=== PATIENT | female | born 1945 | race Caucasian/White ===

== ENCOUNTER 2020-01-07 10:48 | Outpatient (CLI) | payer MEDICARE, BC, SELFPAY ==
[2020-01-07 11:05] VITALS: BP 101/60; PULSE 80; RESP 16; TEMP 36.6; O2SAT 97
[2020-01-07] MEDS: denosumab 60 mg SDV SUBCUT (11:27)
[2020-01-07 11:38] VITALS: BP 107/62; PULSE 84; RESP 16; TEMP 36.8; O2SAT 97
== END 2020-01-07 10:49 | disposition home or self-care (01) ==
LOC: RHEOACUTE 10:49
PROVIDERS: Family Provider Family Medicine; PCP Family Medicine; Visit Provider Internal Medicine Rheumatology
DX: M81.0 Age-related osteoporosis without current pathological fracture (principal)
CPT/HCPCS: 96372; J0897

== ENCOUNTER → 2020-03-25 08:45 | Outpatient (BNVA) | payer MEDICARE, BC, SELFPAY | PROVIDERS: Family Provider Family Medicine; PCP Family Medicine; Visit Provider Dermatology | DX: D48.9 Neoplasm of uncertain behavior, unspecified (principal); L57.0 Actinic keratosis; L70.8 Other acne; D18.01 Hemangioma of skin and subcutaneous tissue; L82.1 Other seborrheic keratosis | CPT/HCPCS: 10040; 11102; 11306; 17000; 17003; 88305; 99203 ==

== ENCOUNTER → 2020-04-01 10:41 | Outpatient (BNVA) | payer MEDICARE, BC, SELFPAY | PROVIDERS: Family Provider Family Medicine; PCP Family Medicine; Visit Provider Dermatology | DX: D48.9 Neoplasm of uncertain behavior, unspecified (principal) | CPT/HCPCS: 88305 ==

== ENCOUNTER 2020-04-05 07:22 | Outpatient (CLI) | payer MEDICARE, BC, SELFPAY ==
--- NOTE | 2020-04-05 07:28 | MM_ITS ---
WS: [id number] BILATERAL SCREENING DIGITAL MAMMOGRAM WITH CAD HISTORY: SCREENING COMPARISON: 03/17/2019 and 03/15/2018 Bilateral CC and MLO views submitted. Computer aided detection analyzed. Breast composition: There are scattered areas of fibroglandular density. No suspicious masses, microc alcifications or architectural distortion. Benign calcifications in the LEFT breast are stable. MM/[id number] IMPRESSION: BI-RADS: 2-Benign FOLLOW UP: 1 Year Follow-up
== END 2020-04-05 07:23 | disposition home or self-care (01) ==
LOC: RADSHAW 07:27
PROVIDERS: PCP Family Medicine; Visit Provider Family Medicine
DX: Z12.31 Encounter for screening mammogram for malignant neoplasm of breast (principal)
CPT/HCPCS: 77067

== ENCOUNTER 2021-03-10 09:42 | Outpatient (CLI) | payer MEDICARE, BC, SELFPAY ==
--- NOTE | 2021-03-10 09:50 | XR_ITS ---
WS: [id number] DEXA (DUAL ENERGY X-RAY ABSORPTIOMETRY) Bone mineral density was performed using a Gecko TV machine. HISTORY: POST MENOPAUSAL COMPARISON: 02/18/2019 Lumbar spine BMD (L1-L4): 1.227 g/cm2 T score: 0.4 Z score: 2.5 Total hip BMD: Left: 0.770 g/cm2. T score: -1.9 Z score: 0.2 Right: 0.691 g/cm2. T score: -2.5 Z score: -0.4 10 year probability of a major osteoporotic fracture is 45%. Compared to the prior study from 02/18/2019. Lumbar spine bone mineral density has increased by 1.0%. Bilateral hips bone mineral density has decrease by 5.3%. XR/XR DEXA axial skeleton* [id number] IMPRESSION: OSTEOPOROSIS based upon the WHO classification for females. Significant decrease in bone mineral density within the hips since the prior .
== END 2021-03-10 09:43 | disposition home or self-care (01) ==
PROVIDERS: PCP Family Medicine; Visit Provider Family Medicine
DX: Z78.0 Asymptomatic menopausal state (principal); M81.0 Age-related osteoporosis without current pathological fracture
CPT/HCPCS: 77080

== ENCOUNTER 2021-04-04 08:19 | Outpatient (CLI) | payer MEDICARE, BC, SELFPAY ==
[2021-04-04 08:27] VITALS: BP 112/76; PULSE 96; RESP 18; TEMP 36.1; O2SAT 98
[2021-04-04] MEDS: denosumab 60 mg SDV SUBCUT (08:35)
== END 2021-04-04 08:20 | disposition home or self-care (01) ==
LOC: ONCMED 08:21
PROVIDERS: PCP Family Medicine; Referring Provider Family Medicine; Visit Provider Family Medicine
DX: M81.0 Age-related osteoporosis without current pathological fracture (principal); Z79.899 Other long term (current) drug therapy
CPT/HCPCS: 96372; J0897

== ENCOUNTER 2021-04-22 07:44 | Outpatient (CLI) | payer MEDICARE, BC, SELFPAY ==
--- NOTE | 2021-04-22 07:50 | MM_ITS ---
WS: [id number] Bilateral screening digital mammogram, 04/22/2021 Clinical Data: SCREENING Comparison: 04/05/2020, 03/17/2019, 03/15/2018, 02/26/2017, 02/25/2016, 02/19/2015, 10/27/2013. Findings: The breast parenchymal pattern shows fibroglandular tissue No spiculated masses or clustered calcific ations are seen. There are no secondary signs of carcinoma. MM/[place] [id number] Impression: 1. Negative bilateral mammogram unchanged. 2. Recommend annual screening mammograms. BIRADS: 1-Negative FOLLOW UP: 1 Year Follow-up The CAD sample checker was used.
== END 2021-04-22 07:45 | disposition home or self-care (01) ==
LOC: RADSHAW 07:48
PROVIDERS: PCP Family Medicine; Visit Provider Family Medicine
DX: Z12.31 Encounter for screening mammogram for malignant neoplasm of breast (principal)
CPT/HCPCS: 77067

== ENCOUNTER 2021-06-13 09:02 | Outpatient (CLI) | payer MEDICARE, BC, SELFPAY ==
--- NOTE | 2021-06-13 09:17 | CT_ITS ---
WS: [id number] CT scan of the abdomen and pelvis with IV contrast. Additional two-dimensional coronal and sagittal r econstruction was performed. 06/13/2021 Clinical Data: ABDOMINAL PAIN AND OBSTIPATION Comparison: None. DLP: 900.[address] scans at [facility] use at least one of these dose optimization techniques: automated e xposure control; mA and/or kV adjustment per patient size (includes targeted exams where dose is matc hed to clinical indication); or iterative reconstruction. Findings: The lower lungs show no nodules, masses or effusions. There are multiple low-density lesions througho ut the liver most consistent with metastatic disease. The portal vein shows normal flow. There is no perihepatic fluid. No dilated intrahepatic ducts are seen. The pancreas shows multiple low density lesions with some calcifications in the body and tail. The he ad of the pancreas is normal. These changes could represent IMPN and/or chronic pancreatitis. The gallbladder, spleen and adrenal glands are normal. The kidneys show equal bilateral contrast excretion with bilateral cysts, the largest on the right me asuring 5.1 cm. There is an extrarenal pelvis on the left. No hydronephrosis, renal masses or calcifi cations are noted. The abdominal aorta is normal in size with minimal calcification in the wall.. No appendicitis or diverticulitis is seen. The stomach, small bowel and colon show no masses or dilat ation. There is a large amount of fecal material throughout the colon. No abscess, adenopathy, ascite s, mass, obstruction or free air is seen. The bladder is unremarkable. No inguinal hernia is seen. 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 CT/CT abdomen pelvis w con* [id number] Impression: 1. Low-density lesions throughout the liver most consistent with metastatic dis ease. 2. Multiple low-density lesions with calcifications in the body and tail of jade creas which could indicate IMPN and/or chronic pancreatitis.
[2021-06-13 09:50] LABS: Blood Urea Nitrogen 15 mg/dL (8-23)
[2021-06-13] MEDS: iohexol 300 mg/mL 100 mL Btl IV (09:59)
== END 2021-06-13 09:03 | disposition home or self-care (01) ==
PROVIDERS: PCP Family Medicine; Visit Provider Family Medicine
DX: R10.9 Unspecified abdominal pain (principal); K59.00 Constipation, unspecified
CPT/HCPCS: 74177; 82565; 84520; Q9967

== ENCOUNTER 2021-06-13 17:19 | Emergency (ER) | payer MEDICARE, BC, SELFPAY ==
[2021-06-13 18:16] VITALS: BP 108/72; PULSE 73; RESP 18; TEMP 36.9; O2SAT 100; BMI 19.3
--- NOTE | 2021-06-13 19:10 | W.ED.GENADLT ---
HPI - General Adult General: Chief complaint: Abdominal Pain Stated complaint: abd pain, sent by Dr abrams Time Seen by Provider: 06/13/21 18:32 History of Present Illness: HPI narrative: Patient is a 76-year-old female with history of hypertension who presents the emergency room for evaluation of nausea/vomiting constipation, bloating abdominal pain for the last 7 days. Patient tells me that symptoms has been going on for 2 weeks initially she describes it as intermittent cramping but now has worsened over the last 2 weeks. Patient has not had a bowel movement in the last few days. Patient was started on lactulose without any improvement in symptoms. Earlier this morning, patient had a CT abdomen pelvis which was ordered showed multiple liver and pancreatic lesions and was told to go to the ER. Onset: 7 days ago Duration: 7 days Location:home Severity:moderate Review of Systems Narrative: Constitutional: No fever, no chills. HEENT: No vision changes CV: No chest pain, no palpitations PULM: no cough, no dyspnea. GI: +abdominal pain, bloating, and constipation, +N/-V/-D. : No dysuria MSKEL: No muscle pain SKIN: No new rashes, no lesions. NEURO: No headache, no focal weakness. HEME: No visible bruises PSYCH: Normal mood PFSH ED PFSH: Medical History Hypertension Osteoporosis Family History Other CAD (coronary artery disease) Diabetes Stroke Denies family history of Cancer Hypertension Social History Smoking and tobacco status: never smoked Alcohol intake: current Alcohol intake frequency: holidays/special occasions only History of recent travel: No Female Reproductive History: Date of last menstrual period: 12/02/20 Physical Exam Narrative: EXAM NARRATIVE: Head: Atraumatic Eyes: PERRL, conjunctiva without injection ENT: Mucous membrane moist NECK: Supple, ROM intact LUNGS: LCTAB, no crackles/rhonchi CV: RRR ABDOMEN: Soft, + mild diffuse tenderness to palpation, voluntary guarding, no rebound tenderness or guarding, no CVA tenderness EXTREMITY: Normal ROM SKIN: No rash or erythema NEURO: Awake and alert, no focal motor deficits PSYCH: Normal mood and affect Course Vital Signs: Vital signs: Vital Signs Temperature 98.4 F 06/13/21 18:16 Pulse Rate 81 06/13/21 21:04 Respiratory Rate 16 06/13/21 21:04 Blood Pressure 94/54 06/13/21 21:04 Pulse Oximetry 98 06/13/21 21:04 MDM - General Adult MDM Narrative: Medical decision making narrative: Patient is a 76-year-old female who presents the emergency room with 7 days of abdominal distention, pain, nausea and constipation. On exam, patient is hemodynamically stable with diffuse tenderness to palpation globally in the abdomen. No rebound tenderness or guarding. Lesions in the pancreas concerning for chronic pancreatitis versus pancreatic mass, lab work-up showed normal lipase. Patient denies any excessive nausea or vomiting. Patient received 1 dose of morphine emergency room reports her abdominal pain is improved. Discussed case with Dr. Suarez who recommended CA 19?9 and CEA marker for this visit. I have given patient follow up with our classification case manager to be seen Dr. Suarez for possible new diagnosis of metastatic liver lesions and possible pancreatic cancer. Patient aware of a call from our classification case manager to schedule for appointment(s) and verbalizes understanding of the importance of following up. Complaints of bloating and abdominal pain improved with medicine given today. Rx percocet 5-325mg PRN pain, miralax, docusate PRN constipation, maalox,pepcid, and zofran PRN abd pain and nausea Disposition: Discharge. Patient counseled regarding diagnostic impression, treatment plan. Patient given ED strict return precautions to return for continuation, worsening, or development of new symptoms. Instructed to f/u w/ Dr. Abrams and Dr. Suarez regarding symptoms today. Patient verbalized understanding. Lab Data: Labs: Lab Results 06/13/21 06/13/21 06/13/21 19:10 19:10 19:10 WBC 9.6 10^3/uL 10^3/ uL (4.0-10.0) RBC 4.61 10^6/uL 10^6 /uL (4.1-5.3) Hgb 13.7 g/dL g/dL (11.5-15.3) Hct 41.7 % % (37.0-47.0) MCV 90.5 fl fl (81-99) MCH 29.7 pg pg (28.0-34.0) MCHC 32.9 g/dL g/dL (30.0-36.0) RDW 12.2 % % (12.1-15.1) Plt Count 279 10^3/cmm 10^3 /cmm (130-400) MPV 10.4 fL fL (7.4-10.4) Neut % (Auto) 71.2 % % Lymph % (Auto) 18.7 % % Lamb % (Auto) 7.5 % % Eos % (Auto) 1.7 % % Baso % (Auto) 0.6 % % Neut # (Auto) 6.80 10^3/uL 10^3 /uL (1.8-7.7) Lymph # (Auto) 1.8 10^3/uL 10^3/ uL (0.8-4.8) Lamb # (Auto) 0.7 10^3/uL 10^3/ uL (0.2-0.9) Eos # (Auto) 0.2 10^3/uL 10^3/ uL (0.0-0.8) Baso # (Auto) 0.1 10^3/uL 10^3/ uL (0.0-0.1) Nucleated RBC % (a uto) 0 % % Nucleated RBCs # 0.0 /100WBC /100W BC PT INR APTT Sodium 133 mmol/L L mmol /L (136-145) Potassium 4.4 mmol/L mmol/L (3.5-5.1) Chloride 96 mmol/L L mmol/ L (98-107) Carbon Dioxide 23 mmol/L mmol/L (22-29) Anion Gap 18.4 (5-19) BUN 14 mg/dL mg/dL (8-23) Creatinine 0.7 mg/dL mg/dL (0.5-0.9) GFR Calculation Not Reportable Glucose 103 mg/dL mg/dL (65-115) Calculated Osmolal ity 277 mOsm/kg L mOs m/kg (285-295) Calcium 8.8 mg/dL mg/dL (8.5-10.5) Total Bilirubin 0.5 mg/dL mg/dL (0.15-1.2) AST 21 U/L U/L (0-32) ALT 20 U/L U/L (0-33) Alkaline Phosphata se 102 IU/L IU/L (35-105) Total Protein 7.3 g/dL g/dL (6.6-8.7) Albumin 4.5 g/dL g/dL (3.5-5.2) Globulin 2.8 g/dL g/dL (1.3-4.6) Lipase 21 U/L U/L (13-60) Carcinoembryonic A g 10.4 ng/mL H ng/m L (0.0-4.7) Urine Color Urine Appearance Urine pH Ur Specific Gravit y Urine Protein Urine Glucose (UA) Urine Ketones Urine Blood Urine Nitrate Urine Bilirubin Urine Urobilinogen Ur Leukocyte Lucrecia ase Urine RBC Urine WBC Ur Squamous Epith Cells Amorphous Sediment Urine Bacteria 06/13/21 06/13/21 19:10 19:15 WBC RBC Hgb Hct MCV MCH MCHC RDW Plt Count MPV Neut % (Auto) Lymph % (Auto) Lamb % (Auto) Eos % (Auto) Baso % (Auto) Neut # (Auto) Lymph # (Auto) Lamb # (Auto) Eos # (Auto) Baso # (Auto) Nucleated RBC % (a uto) Nucleated RBCs # PT 13.50 SECONDS SEC ONDS (12.1-14.9) INR 1.00 (0.8-1.2) APTT 26.3 SECONDS SECO NDS (23.9-36.7) Sodium Potassium Chloride Carbon Dioxide Anion Gap BUN Creatinine GFR Calculation Glucose Calculated Osmolal ity Calcium Total Bilirubin AST ALT Alkaline Phosphata se Total Protein Albumin Globulin Lipase Carcinoembryonic A g Urine Color Yellow (Yellow) Urine Appearance Clear (CLEAR) Urine pH 7 (5-7) Ur Specific Gravit y 1.000 L (1.005-1.030) Urine Protein 1+ H (Negative) Urine Glucose (UA) Norm (Normal) Urine Ketones 1+ H (Negative) Urine Blood Neg (Negative) Urine Nitrate Negative (Negative) Urine Bilirubin 1+ H (Negative) Urine Urobilinogen Norm mg/dL mg/dL (Negative) Ur Leukocyte Lucrecia ase Negative (Negative) Urine RBC None /hpf /hpf (0-2) Urine WBC 0-4 /hpf H /hpf (0-5) Ur Squamous Epith Cells 0-4 /hpf H /hpf (0-5) Amorphous Sediment Not Reportable Urine Bacteria Trace /hpf /hpf (NONE) Imaging Data^: Other Imaging: Radiologist's impression: [facility] [id number] [place], [place] [id number] Scan ReportSigned Patient: Aleida Vera AUnit #: [id number]: [id number]#:[id number]/Sex: 76 / FADM Date: 06/13/21Loc: RADWPIRoom/Bed:Attending Dr: Harry Abrams MD Ordering Provider/Ordering MD: Harry Abrams MD Date of Service: 06/13/21 Procedure(s): CT abdomen pelvis w con* [id number] Accession Number(s): [id number] Report Number: [id number] WS: [id number] CT scan of the abdomen and pelvis with IV contrast. Additional two-dimensional coronal and sagittal reconstruction was performed. 06/13/2021 Clinical Data: ABDOMINAL PAIN AND OBSTIPATION Comparison: None. DLP: 900.[address] scans at [facility] use at least one of these dose optimization techniques: automated exposure control; mA and/or kV adjustment per patient size (includes targeted exams where dose is matched to clinical indication); or iterative reconstruction. Findings: The lower lungs show no nodules, masses or effusions. There are multiple low-density lesions throughout the liver most consistent with metastatic disease. The portal vein shows normal flow. There is no perihepatic fluid. No dilated intrahepatic ducts are seen. The pancreas shows multiple low density lesions with some calcifications in the body and tail. The head of the pancreas is normal. These changes could represent IMPN and/or chronic pancreatitis. The gallbladder, spleen and adrenal glands are normal. The kidneys show equal bilateral contrast excretion with bilateral cysts, the largest on the right measuring 5.1 cm. There is an extrarenal pelvis on the left. No hydronephrosis, renal masses or calcifications are noted. The abdominal aorta is normal in size with minimal calcification in the wall.. No appendicitis or diverticulitis is seen. The stomach, small bowel and colon show no masses or dilatation. There is a large amount of fecal material throughout the colon. No abscess, adenopathy, ascites, mass, obstruction or free air is seen. The bladder is unremarkable. No inguinal hernia is seen. 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 CT/CT abdomen pelvis w con* [id number] Impression: 1. Low-density lesions throughout the liver most consistent with metastatic disease. 2. Multiple low-density lesions with calcifications in the body and tail of pancreas which could indicate IMPN and/or chronic pancreatitis. Dictated By:Carly Rueda MDSigned By:Carly Rueda MDSigned Date/Time:06/13/21 1029DD/ 1017 Discharge Plan Discharge Patient Disposition: Home Clinical Impression: Abdominal pain, Constipation, Lesion of liver Condition: Stable Prescriptions: New Miralax 17 gram/dose powder 8.5 g PO DAILY PRN (Reason: constipation) 28 Days RF: 0 Gas Relief (simethicone) 250 mg capsule 250 mg PO BID PRN (Reason: abdominal distention) 15 Days Qty: 30 RF: 0 Pepcid 20 mg tablet 20 mg PO BID 42 Days Qty: 84 RF: 0 Maalox Advanced 1,000-60 mg tablet,chewable 1 tab PO TID PRN (Reason: pain) 30 Days Qty: 90 RF: 0 docusate calcium 240 mg capsule 240 mg PO BID PRN (Reason: constipation) 30 Days Qty: 60 RF: 0 Zofran 4 mg tablet 4 mg PO TID PRN (Reason: nausea and vomiting) 5 Days Qty: 15 RF: 0 No Action rosuvastatin 10 mg tablet 10 mg PO DAILY RF: 0 lisinopril 20 mg tablet 20 mg PO DAILY RF: 0 amlodipine 10 mg tablet 10 mg PO DAILY RF: 0 acetaminophen [Tylenol] 325 mg capsule 325 mg PO QID PRNRF: 0 calcium carbonate [Calcium 500] 500 mg calcium (1,250 mg) tablet 500 mg PO DAILY RF: 0 multivitamin Capsule 1 cap PO DAILY RF: 0 Prolia 60 mg/mL syringe SUBCUT RF: 0 Prolia 60 mg/mL syringe SUBCUT RF: 0 Discharge Orders: Discharge ED (Routine); Ordered 06/13/21 Ordered By: Cas Tong Referrals: Harry Abrams MD [Primary Care Provider] - Discharge Diet: Advance as tolerated Discharge Activity: Resume usual activity Patient Instructions: Constipation (ED), Abdominal Pain (ED), Opioid Safety Activity Restrictions/Additional Instructions: Our classification case manager will have you follow-up with Dr. Suarez from Oncology in the next few days. You would be expected to have a phone call with our classification case manager who will put you on the schedule. Take your medicine for constipation, abdominal pain, and nausea. Follow-up with Dr. Abrams closely to evaluate the steps. Coding Level of Care Code ED [employer] Operations Specialist for Suad Almendarez
[2021-06-13 19:28] VITALS: RESP 18
[2021-06-13] MEDS: morphine 4 mg/mL SDV 1 mL IVP (19:28)
[2021-06-13] MEDS: famotidine 20 mg/2 mL INJ IVP (19:28)
[2021-06-13 19:38] LABS: Glucose Urine UA Norm (Normal); Protein Urine 1+ (Negative); Urine Appearance Clear (CLEAR); Urine Color Yellow (Yellow); pH Urine 7 (5-7)
[2021-06-13 19:39] LABS: Add Urine Culture? No; Add Urine Microscopic? YES; Bacteria Urine TRACE /hpf; Bilirubin Urine 1+ (Negative); Blood Urine Neg (Negative); Ketones Urine 1+ (Negative); Leukocyte Esterase Urine Negative (Negative); Nitrate Urine Negative (Negative); Squamous Epithelial Cell Urine 0-4 /hpf (0-5); Urobilinogen Urine Norm (Negative); WBC Urine 0-4 /hpf (0-5)
[2021-06-13 20:07] LABS: Basophils # 0.1 10^3/uL (0.0-0.1); Basophils % 0.6 %; Eosinophils # 0.2 10^3/uL (0.0-0.8); Eosinophils % 1.7 %; Hematocrit 41.7 % (37.0-47.0); Hemoglobin 13.7 g/dL (11.5-15.3); Lymphocytes # 1.8 10^3/uL (0.8-4.8); Lymphocytes % 18.7 %; Mean Corpuscular HGB Conc 32.9 g/dL (30.0-36.0); Mean Corpuscular Hemoglobin 29.7 pg (28.0-34.0); Mean Corpuscular Volume 90.5 fl (81-99); Mean Platelet Volume 10.4 fL (7.4-10.4); Monocytes # 0.7 10^3/uL (0.2-0.9); Monocytes % 7.5 %; Neutrophils % 71.2 %; Nucleated Red Blood Cells % 0 %; Platelet Count 279 10^3/cmm (130-400); Red Blood Count 4.61 10^6/uL (4.1-5.3); Red Cell Distribution Width 12.2 % (12.1-15.1); White Blood Count 9.6 10^3/uL (4.0-10.0)
[2021-06-13] MEDS: lidocaine 2% viscous 15 ML, aluminum-mag hydrox-simethicon 30 ML, sucralfate oral liq 1 GM PO (20:12)
[2021-06-13 20:21] VITALS: BP 90/67; PULSE 82; RESP 18; O2SAT 97
[2021-06-13 20:26] LABS: Partial Thromboplastin Time 26.3 SECONDS (23.9-36.7)
[2021-06-13 20:40] LABS: Alanine Aminotransferase 20 U/L (0-33); Albumin Level 4.5 g/dL (3.5-5.2); Alkaline Phosphatase 102 IU/L (35-105); Anion Gap 18.4 (5-19); Aspartate Amino Transferase 21 U/L (0-32); Blood Urea Nitrogen 14 mg/dL (8-23); Calcium 8.8 mg/dL (8.5-10.5); Carbon Dioxide 23 mmol/L (22-29); Chloride 96 mmol/L (98-107); Globulin 2.8 g/dL (1.3-4.6); Glucose 103 mg/dL (65-115); Lipase 21 U/L (13-60); Osmolality Calculated 277 mOsm/kg (285-295); Potassium 4.4 mmol/L (3.5-5.1); Sodium 133 mmol/L (136-145); Total Bilirubin 0.5 mg/dL (0.15-1.2); Total Protein 7.3 g/dL (6.6-8.7)
[2021-06-13] MEDS: famotidine 20 mg Tablet PO (21:00)
[2021-06-13] MEDS: alum-mag-hydroxide-sime 30 mL UDC PO (21:00)
[2021-06-13 21:04] VITALS: BP 94/54; PULSE 81; RESP 16; O2SAT 98
[2021-06-13 23:56] LABS: Carcinoembryonic Antigen 10.4 ng/mL (0.0-4.7)
[2021-06-14 04:17] LABS: Cancer Antigen 19 9 2905 U/mL (0-35)
--- NOTE | 2021-06-14 14:11 | DCPLANNER ---
body corporate manager had message to schedule a follow up appointment for patient with [facility]. body corporate manager called Serina, the backup administrative coordinator at the [facility] [place]. body corporate manager was told that patient was seen today.
== END 2021-06-13 21:16 | disposition home or self-care (01) ==
PROVIDERS: Emergency Provider Emergency Medicine; PCP Family Medicine
DX: K59.00 Constipation, unspecified (principal); K76.9 Liver disease, unspecified; I10 Essential (primary) hypertension; R10.9 Unspecified abdominal pain
CPT/HCPCS: 74177; 80053; 81001; 82378; 82565; 83690; 84520; 85025; 85610; 85730; 86301; 96374; 96375; 99284; J2270; J3490; Q9967

== ENCOUNTER 2021-06-14 08:57 | Outpatient (CLI) | payer MEDICARE, BC, SELFPAY ==
[2021-06-14] MEDS: ondansetron 2 mg/ML SDV 2 mL 8 MG IVP (09:35)
[2021-06-14] MEDS: sodium chloride 0.9% 1,000 ML 800 ML IV (09:35)
[2021-06-14] MEDS: pantoprazole 40 mg SDV IV (10:22)
[2021-06-14] MEDS: lactulose oral liq 20 gm/30 mL UDC PO ×2 (10:25→12:40)
--- NOTE | 2021-06-14 17:28 | ONC CON_ITS ---
Dr. Suarez New Patient Note Patient: Aleida Vera Unit #: [id number]: [id number] Dicatated By: Matteo Suarez M.D.Date of Visit: Jun 14, 2021 Onc MED New Patient/Consult Referring Physician: [facility] Chief Complaint: Liver metastases. History of Present Illness: This is a 76-year-old woman who has recently been found to have CT evidence of metastatic malignancy involving the liver, suspected to be pancreatic or hepatobiliary origin. She had presented to Dr. Chew with a 2-week history of nausea, abdominal pain, and constipation. She also had experienced weight loss and a significant decline in activity tolerance. Her CT of the abdomen/pelvis yesterday showed multiple low-density lesions throughout the liver which appeared to be consistent with metastatic disease. Also noted were multiple low-density lesions in the body and tail of the pancreas, some with calcifications. The head of the pancreas was normal. The appearance was thought to be consistent with IMPN and/or chronic pancreatitis. A large amount of fecal material was noted throughout the colon. There were no other significant abnormal findings. On her further evaluation in the emergency room she was noted to have significantly elevated CA 19-9 level at 2905 U/mL with mildly elevated CEA at 10.4 ng/mL. Her comprehensive metabolic profile showed normal bilirubin and normal liver enzymes. Her lipase was normal at 21 U/L. She is seen now for further management. She says that in the last 2 weeks her energy has tanked. She has limited activity. She has to rest after doing just a little bit of light work. Up until that time she had been very active and walking daily. She has very poor appetite. She says she has not been eating. She has had a recent weight loss in the range of 12 to 15 pounds. She has not had fever. She occasionally has sweating at night. She has not had sore throat or difficulty swallowing. She has had some pain in the substernal area. She does not complain of cough and she has not been having shortness of breath. She has nausea, but no vomiting. She has had heartburn and gas, and she has been having significant constipation despite taking magnesium citrate and MiraLAX. She has not been aware of any blood in the stool. She has frequent urination and nocturia, but some of that she attributes to drinking a lot of water. She has normal old age joint pain. She has been having dull headache and she occasionally has lightheadedness. She has no numbness/paresthesia or other focal neurologic symptoms. Past Medical History: Her medical history consists of hyperlipidemia, hypertension, and osteoporosis. She has a history of gout. Past Surgical History: Her surgeries have been limited to hysterectomy with bilateral salpingo-oophorectomy and appendectomy in i991 and a previous tonsillectomy. Medications: amLODIPine Besylate 1 Tablet (of 10 mg) Oral daily, Calcium Carbonate-Simethicone 1 Tablet (of 1000-60 mg) Tablet, chewable Oral t.i.d. PRN, Famotidine 1 Tablet (of 20 mg) Oral b.i.d., Lisinopril 1 Tablet (of 20 mg) Oral daily, MiraLax Pack Oral PRN, Ondansetron HCl 1 Tablet (of 4 mg) Oral t.i.d. PRN, Rosuvastatin Calcium 1 Tablet (of 10 mg) Oral daily, Simethicone 1 Tablet (of 250 mg) Capsule Oral b.i.d., Stool Softener 1 Tablet (of 240 mg) Capsule Oral b.i.d. PRN Allergies: crab meat and Dexamethasone. Social History: Ms. Vera is . She is a non-smoker. She does not drink alcohol. Family History: Father with congestive heart failure at age 83. Mother also at 83, apparently of old age. A brother had diabetes and Parkinson's disease at age 78. A sister with heart disease at age 65. Review Of Symptoms: Constitutional - She says her energy is tanked. She is still able to do some light work, though she has to lie down and rest frequently. Appetite is very poor. She says she is not eating. She has had a recent weight loss in the range of 12 to 15 pounds. She has not had fever. She occasionally has sweating at night. ECOG score is 1, Eyes - No change in vision, ENMT - She has hearing loss in her right ear. No tinnitus. No sinus congestion/drainage. No mouth sores. No sore throat or difficulty swallowing, Hematologic/Lymphatic - She has had some bruising, Respiratory - No shortness of breath. No cough. No pleuritic pain or hemoptysis, Cardiovascular - She has had some pain in the substernal area. No palpitations, Gastrointestinal - She has had nausea but no vomiting. She has been having a lot of heartburn and gas, and she has had constipation. No blood in the stool or black stools, Genitourinary (F) - No dysuria or hematuria. She has urinary frequency and nocturia. She has a little incontinence, Musculoskeletal - She has normal old age pain, Integumentary - No skin rash or other skin changes, Neurologic - She has had a dull headache. She occasionally has dizziness. No numbness or tingling. No other focal neurologic symptoms, Psychiatric - No anxiety or depression. She has not been sleeping well. Vital Signs: Performed on Jun 14, 2021 09:51: 7, 9, 19.17, 1.56 sq.m, 65 in, 98 %, 90 /min, 18 /min, 96/59 mm(hg), 97.7 F (LOW), and 115.2 lbs (HIGH). Physical Examination: Constitutional - She appears generally weak, Eyes - Sclerae nonicteric. Conjunctivae clear, ENMT - No lesions noted in the oral cavity, Neck - No mass or thyromegaly, Hematologic/Lymphatic - No cervical, clavicular, or axillary adenopathy, Respiratory - Lungs are clear with good air movement bilaterally, Cardiovascular - Heart rhythm is regular. There is no murmur, gallop, or rub noted, Abdomen - Soft. There is mild generalized abdominal tenderness. Liver is not enlarged or tender. Spleen is not palpable. There is no abdominal mass or ascites noted and there is no inguinal adenopathy, Extremities - No edema. Pedal pulses are palpable bilaterally, Integumentary - No rashes. No suspicious skin lesions noted, Neurologic - No focal neurologic deficits noted. Problem List: 1. Patient with CT evidence of metastatic involvement in the liver. By clinical evaluation this would appear to be most likely of hepatobiliary origin, though a definite primary malignancy was not identified. 2. Hypertension, but now with low blood pressure. 3. Hyperlipidemia. 4. Osteoporosis. 5. History of gout. Problems Addressed with this Encounter and Plan: 1. Patient with CT evidence of metastatic involvement in the liver. By clinical evaluation this would appear to be most likely of hepatobiliary origin, though a definite primary malignancy was not identified. The CT findings were reviewed with the patient, and we discussed the clinical implications. She clearly has evidence of metastatic involvement in the liver. Although there is some uncertainty as to the origin of the malignancy, based on the tumor markers it would appear to be most likely of hepatobiliary origin. While it is difficult to make specific treatment recommendations without a biopsy for complete pathologic analysis, we discussed the fact that this is a malignancy which is probably not going to have a very high probability of responding to chemotherapy or immunotherapy, and there is also a low probability that it would be eligible for treatment with a targeted agent. On further discussion, she indicates that she is not interested in pursuing chemotherapy or biopsy. As such, her further management will be limited to symptomatic/supportive measures. I did discuss hospice, I will arrange for hospice referral. We have begun to explore the process of arranging for a paid caregiver, as she currently lives alone and she has no family support available. In the meantime, she is being given additional IV hydration and IV antiemetics today. I will have her start a bowel regimen with lactulose. She will start prednisone 10 mg twice daily and pantoprazole 40 mg daily, and she will be given a prescription for lorazepam to take as needed. She can return for additional IV hydration as needed. 2. She has hypertension, but her blood pressure is now low. She is advised to stop her antihypertensive medication. Signed By: Matteo Suarez M.D. <<Signature on File>>
== END 2021-06-14 08:58 | disposition home or self-care (01) ==
PROVIDERS: PCP Family Medicine; Visit Provider Internal Medicine Medical Oncology
DX: C78.7 Secondary malignant neoplasm of liver and intrahepatic bile duct (principal); C80.1 Malignant (primary) neoplasm, unspecified; E78.5 Hyperlipidemia, unspecified; M81.0 Age-related osteoporosis without current pathological fracture; Z87.39 Personal history of other diseases of the musculoskeletal system and connective tissue; I10 Essential (primary) hypertension; Z79.899 Other long term (current) drug therapy
CPT/HCPCS: 96361; 96374; 96375; 99205; C9113; J2405; J7030